=== PATIENT | male | born 1995 | race Caucasian/White ===

== ENCOUNTER 2017-01-11 19:13 | Emergency (ER) | payer OTHER ==
[~2017-01-11] VITALS: Ht 175.3 cm; Wt 65.0 kg
[2017-01-11 19:16] VITALS: BP 131/88; TEMP 97.4
[2017-01-11 21:02] VITALS: PULSE 96
== END 2017-01-11 21:02 | disposition home or self-care (01) ==
LOC: COL.ER 19:13
DX: R06.00 Dyspnea, unspecified (principal); J45.909 Unspecified asthma, uncomplicated; K21.9 Gastro-esophageal reflux disease without esophagitis
CPT/HCPCS: J8540